=== PATIENT | female | born 1965 | race Caucasian/White ===

== ENCOUNTER → 2017-06-05 | Outpatient (CLI) | payer OTHER ==
[~2017-06-05] VITALS: Ht 167.6 cm; Wt 68.0 kg
[~2017-06-05] MED LIST: SINCALIDE 1.4 MCG in IV NORMAL SALINE 50ML 30 ML IV ONE
--- NOTE | 2017-06-05 15:17 | RAD ---
Exam performed: Nuclear medicine hepatobiliary scan. History: Epigastric pain for one month, elevated liver enzymes Comparison: None Findings: Following intravenous administration of5.5 mCi of Choletec tagged with Tc, sequential gamma camera images of the right upper quadrant of the abdomen were obtained. There is prompt accumulation of radionuclide in the liver which appears to be unremarkable Prompt accumulation in the central intrahepatic biliary radicals, gallbladder, common bile duct and small bowel is noted. Patient was also infused with 1.4mcg of CCK and gallbladder ejection fraction was calculated which [id number]% Impression: Normal nuclear hepatobiliary scan with normal ejection fraction of the gallbladder.
== END | disposition home or self-care (01) ==
LOC: NM 12:51
PROVIDERS: ATTEND Family Medicine
DX: R10.13 Epigastric pain (principal); R74.8 Abnormal levels of other serum enzymes
CPT/HCPCS: 78226; 96374; 96375; A9537; J2805